=== PATIENT | female | born 1985 | race Caucasian/White ===

== ENCOUNTER → 2017-07-27 | Outpatient (CLI) | payer OTHER | LOC: FIMAGING 15:48 | PROVIDERS: ATTEND Psychiatry & Neurology Neurology | DX: R94.02 Abnormal brain scan (principal); G25.3 Myoclonus ==

== ENCOUNTER → 2017-07-30 | Outpatient (CLI) | payer OTHER ==
--- NOTE | 2017-07-30 14:41 | CPEEG ---
[f rep st] ELECTROENCEPHALOGRAM DATE OF STUDY: 07/30/2017 STUDY PERFORMED: 4-hour video EEG INTERPRETATION: This 4-hour video EEG recording is normal. There were no potentially epileptogenic abnormalities present during the awake or sleep recordings. During the video EEG monitoring session, there were no clinical events recorded. REPORT: This 4-hour video EEG contains 9-10 Hz alpha activity over the posterior head regions. The background activity was normal and symmetric. There was no abnormal activation at rest, with photic stimulation or hyperventilation. The patient became drowsy and fell into sustained sleep during the study. There was no abnormal activation during drowsiness, sleep, or during times of arousal. There were no clinical events recorded during the video EEG monitoring session. Only customer care representative samples of wakefulness, sleep and clinical events were reviewed with this study. /[id number]/MODL [id number]
== END ==
LOC: FCPNEURO 07:52
PROVIDERS: ATTEND Psychiatry & Neurology Neurology
DX: G25.3 Myoclonus (principal); D18.02 Hemangioma of intracranial structures